=== PATIENT | female | born 1975 | race Caucasian/White ===

== ENCOUNTER → 2023-01-31 | Day surgery (SDC) | payer BC ==
[2023-01-24 14:23] VITALS: BMI 38.2
[~2023-01-31] MED LIST: LIDOCAINE 1% (10MG/ML) FOR IV START INTRADERMA PRN; PROPOFOL 10 MG/ML 20 ML VIAL IV ONE
[2023-01-31 10:04] VITALS: RESP 16; TEMP 97.6
[2023-01-31] MEDS: LACTATED RINGERS 1,000 ML IV SCH ×2 (10:13→11:13)
--- NOTE | 2023-01-31 11:30 | P.PCN ---
Date of Procedure: 01/31/23 Procedure(s) Performed: BRIEF HISTORY: Patient is a 47-year-old pleasant female scheduled for an elective colonoscopy as a part of screening for colon cancer. PROCEDURE PERFORMED: Colonoscopy with biopsy. PREOPERATIVE DIAGNOSIS: Screening for colon cancer. IV sedation per Anesthesia. PROCEDURE: After informed consent was obtained, the patient, was brought into the endoscopy unit. IV sedation was administered by Anesthesia under continuous monitoring. Digital rectal examination was normal. Initially the Olympus CF-160 flexible video colonoscope was then inserted in the rectum, gradually advanced into the cecum without any difficulty. Careful examination was performed as the scope was gradually being withdrawn. Ileocecal valve and the appendiceal orifice were visualized and appeared normal. Prep was excellent. Mucosa of the cecum, ascending colon, transverse colon, descending colon, sigmoid colon, and rectum appeared normal. In the sigmoid colon there was a 3 mm polyp that was removed by cold biopsy. Retroflexion was performed in the rectum and no lesions were seen. The patient tolerated the procedure well. IMPRESSION: 3 mm; sigmoid polyp status post cold biopsy Rest of the colon appeared normal RECOMMENDATIONS: Findings of this examination were discussed with the patient as well as a family.. He was advised to follow with the biopsy results and have a repeat colonoscopy in 10
[2023-01-31 11:55] VITALS: BP 136/80; PULSE 77
== END ==
LOC: ORWHC2ENDO 09:08
PROVIDERS: ATTEND Internal Medicine Gastroenterology
DX: Z12.11 Encounter for screening for malignant neoplasm of colon (principal); F17.200 Nicotine dependence, unspecified, uncomplicated; K63.5 Polyp of colon; Z88.0 Allergy status to penicillin
CPT/HCPCS: 88305; 45380; J2704